=== PATIENT | female | born 1940 | race Caucasian/White ===

== ENCOUNTER 2020-10-03 13:20 | Inpatient (IN) | payer OTHER, BC ==
[~2020-10-03] VITALS: Ht 172.7 cm; Wt 58.5 kg
[2020-10-03 21:55] VITALS: BP 143/66
--- NOTE | 2020-10-04 02:47 | NUR ---
10-03-20 RECEIVED REPORT FROM ELIZABETH LOOMIS FROM ED. PT ARRIVED ON UNIT 2044 AND NOTED PT WAS UNTIDY AND BRIEF HEAVY WITH YELLOW URINE, REDNESS IN PERIAREA AND BUTTOCKS, PT CLEANED WITH SOAP AND WATER AND Z-GUARD APPLIED AND PT PLACED IN BED ON CLEAN CHUX OPEN TO AIR. PT PRESENTS A/OX1, ANXIOUS WITH CONFUSION. PT HAS GREER UE AND LE BRUISING AND MULTI OLD WOUNDS WITH POSSIBLE VASCULAR INSUFFICIENCY IN LE, PT SLIGHT BLEEDING ON LLE, CLEAN WITH WOULD ARTIFICIAL BREEDING TECHNICIAN AND DRESSING APPLIED. OBSERVED SMALL BATTERY PLATE ASSEMBLER B/P 143/66, P 81, R16, T 97.1, O2SAT 96% RA RR EVEN AND NONLABORED ON RA. PT DENIES SI/HI AND PAIN. PT PRESENTS ANXIOUS BUT HAS REMAINED COOPERATIVE. MOUTH MOISTURE PROVIDED, R/T PT LIPS ARE CHAPPED AND PT DRANK 480ML OF WATER. PT HAD NO DIFFICUTLIES TAKING MEDICATION WHOLE WITH WATER. PT HAS A HX HTN, CHF, DM2 WITH NEUROPATHY, GERD, ARTHRITIS, HYPOTHYRODISM, GLAUCOMA, RECURRING UTI (PRESENT UTI). PT ATE 100% OF HS SNACK, AND ANOTHER 240ML OF WATER. ZERO S/S OF ACUTE DISTRESS NOTED, PT WILL CONTINUE TO BE OBSERVED PER [facility] PROTOCOL.
[2020-10-04 06:07] LABS: CHOLESTEROL 206 mg/dL (<200); HDL CHOLESTEROL 31 mg/dL (>40); LDL CHOLESTEROL 145 mg/dL (<100); TC:HDL 6.6 Ratio (Not establshd); TRIGLYCERIDE 154 mg/dL (<150); VLDL 31 mg/dL (<40)
[2020-10-04 06:08] LABS: SERUM ASSESSMENT Clear
[2020-10-04 09:36] LABS: ANION GAP 12 mmol/L (7-16); BUN 15 mg/dL (7-18); CALCIUM 9.1 mg/dL (8.5-10.1); CHLORIDE 106 mmol/L (98-107); CO2 27 mmol/L (21-32); CREATININE 1.3 mg/dL (0.6-1.0); GLUCOSE 90 mg/dL (74-106); POTASSIUM 3.9 mmol/L (3.5-5.1); SODIUM 145 mmol/L (136-145)
[2020-10-04 09:53] LABS: ABSOLUTE NEUTROPHILS 2.9 thou/uL (1.4-8.2); EOSINOPHILS 3.9 % (0.0-3.0); HEMATOCRIT 35.1 % (37.0-47.0); HEMOGLOBIN 11.4 gm/dL (12.0-15.0); LYMPHOCYTES 26.4 % (24.0-44.0); MCH 29.3 pg (26.0-34.0); MCHC 32.5 g/dL (28.0-37.0); PLATELET COUNT 166 thou/uL (150-400); POLYS 58.7 % (36.0-66.0); RDW 15.2 % (10.5-14.5); WBC 4.9 thou/uL (4.0-11.0)
--- NOTE | 2020-10-04 10:02 | NUR ---
RD consulted r/t admission to [facility]. Pt on regular diet with no c/o chewing/swallowing at this time. Pt unable to track conversation during dining room visit this AM. She was eating her bkft; confused with the juice box, stating she would usually have her juice in a cup and stating that there was too much food in front of her. "If I eat all of this, I will be a glutton." Meds reviewed and include diuretics, B12, metformin. Labs: lipids out of range, H/H 11.9/36.7, Cr 1.5. UBW inknown. Low nutrition risk.
[2020-10-04 10:13] VITALS: BP 118/43
--- NOTE | 2020-10-04 10:32 | NUR ---
Sleeping but awakens easily. Alert, orientated to name and place but does not know name of facility. Denies SI/HI. Breath sounds clear. Reg HR auscultated. Color pale pink with brisk capillary refill and palpable peripheral pulses. No edema noted. Brief dry, incontinent per report. Active bowel sounds over soft, rounded abdomen. Buttocks with mild erythema, zguarded. Multiple circular scabbed areas on shins, covered with protective pads. Placed in gerichair by as400 programmer. Took meds whole with liquid with alot of encouragement. Minimal PO intake for breakfast.
[2020-10-04 19:20] VITALS: BP 134/111
[2020-10-04 19:23] LABS: URINE BILIRUBIN NEGATIVE (Negative); URINE BLOOD NEGATIVE (Negative); URINE CLARITY CLEAR; URINE COLOR YELLOW; URINE GLUCOSE-RANDOM* NEGATIVE (Negative); URINE KETONES NEGATIVE (Negative); URINE LEUKOCYTES-REFLEX TRACE (Negative); URINE NITRITE-REFLEX NEGATIVE (Negative); URINE PROTEIN (DIPSTICK) NEGATIVE (Negative); URINE UROBILINOGEN 0.2 E.U./dl (0.2-1.0)
--- NOTE | 2020-10-05 06:45 | NUR ---
ASSUMED CARE OF PT, AWAKE RESTING IN BED, PO MEDICATION WITH LOTS OF ENCOUGEMENT. INCONTINENT OF URINE , Z JHONNY APPLIED. PT RESTED WELL THROUGHOUT ROUNDING SAFETY MEASURES IIN PLACE.
[2020-10-05 10:25] VITALS: BP 124/69
--- NOTE | 2020-10-05 14:14 | NUR ---
HAS BEEN CALLING OUT TO STAFF FOR ASSISTANCE SEVERAL TIMES THIS AM-RESTLESS STATING SHE WANTS TO GO TO ROOM BUT NOT TO BED-STATES DOES NOT WANT TO WATCH TV OR GO TO GROUPS OR LAY DOWN IN BED-IS ORIENTED TO PLACE STATING "I HAVE BEEN COMING TO THIS HOSPITAL FOR A LONG TIME"WHEN ASKED WHY SHE WAS HERE STATES "I FELL-WHEN ASKED HOW STATES "I WASS TANDING AT THE TOP OF THE SKIE LIFT AND I GUESS I FEELL,I COULD SEE THEM DOING JUMPS AROUND ME (THE OTHER SKIERS)ATE ATE WELL DENIES C/O PAIN
[2020-10-05 19:15] VITALS: BP 130/60
[2020-10-05 20:10] VITALS: BP 130/60
[2020-10-05 21:06] LABS: SYPHILIS AB Non Reactive (Non Reactive)
--- NOTE | 2020-10-06 01:34 | NUR ---
PATIENT CARE WAS RESUMED AT 1900 AFTER REPORT. SHE IS ALERT AND ORIENTED.MAX DIABETES NURSE WITH CARE.PT APPEARED SO FIGHTFUL. ABLE TO VERBALIZE NEED. LUNGS ARE CLEARED. SHE TOOK HER MEDS WHOLE WITHOUT ANY ISSUES. SHE DENIES PAINS SI/ VHA/.BS ACTIVE X 4 QUAD.INCONTINET OF BOWEL/BLADDER. .BED IS LOW , LOCKED, ALARM ACTIVATED,YELLOW SOCK AND SHIRT ON. [id number] CHECK ON. CONTINUE CARE AND MONITOR.
[2020-10-06 06:14] LABS: CALCIUM 9.6 mg/dL (8.5-10.1); POTASSIUM 3.9 mmol/L (3.5-5.1)
--- NOTE | 2020-10-06 06:50 | H ---
[facility] [place] [address] HISTORY AND PHYSICAL Name: RED BARNEY Room #: 521B-B ADM IN M.R.#: [id number] Admission: 10/03/20 Attend Phys: Scottie Silva DO Discharge: Date of : 36 Report #: [id number] THIS REPORT FOR: cc: Grupo Nice MD, Ammar MD Kerstein,Scottie Smith DO ~ DOC #: [id number] SCOTTIE Silva DO DATE OF SERVICE: 10/04/2020 INPATIENT PSYCHIATRIC EVALUATION ATTENDING PSYCHIATRIST: Scottie Silva DO MEDICAL CONSULTANTS: Sussy Gaffney and Delmer Adamson MD and his hospitalist team SOURCES OF INFORMATION: Telephone call with the , Ralph, his number is [phone], also interview with the patient, records review from the [facility], and interview with the patient. REASON FOR PRESENTATION: Refusing medications, difficulty with care, concerns for psychosis. CHIEF COMPLAINT: Unspecified. HISTORY OF PRESENT ILLNESS: This is an 79-year-old female. The patient is appearing cognitively impaired. She is oriented to self today and pleasant. She is unable to describe why she was sent out from the long-term care facility. The diagnosis the long-term care facility has is quite numerous and I hesitate to read it as it is appearing that has been anything that was or may have been ever diagnosed with her. Needless to say, the patient does have a history of coronary artery disease, coronary artery stent placement. The patient does not have a history of surgeries according to the . SOCIAL HISTORY: The patient was born in [place], [place], raised in [place]. According to the , she has a college degree. No history of physical, sexual or emotional abuse. No alcohol, tobacco smoking, drug history. MEDICATIONS: In the shelter are acetaminophen 325 mg 2 tabs q. 4 hours p.r.n. for pain, Ativan 0.5 mg oral every 8 hours as needed for anxiety, bisacodyl suppository, bupropion 300 mg once daily, cyanocobalamin 1000 mcg oral daily, Depakote [address] ordered daily, the has requested the patient not be continued on this medication. Lexapro 10 mg oral daily; Estrace cream 0.1 mg per gram inserted vaginally at bedtime every Saturday, Saturday, Saturday; [facility] [address] [place] [address] HISTORY AND PHYSICAL Name: RED BARNEY Room #: 521B-B ADM IN M.R.#: [id number] Admission: 10/03/20 Attend Phys: Scottie Silva, Discharge: Date of : 38 Report #: [id number] famotidine 20 mg oral daily, Floranex that is lactobacillus one tablet daily; furosemide 40 mg oral daily; Keflex 500 mg by mouth one time a day; latanoprost drops each eye daily; levothyroxine 50 mcg oral daily; metformin 500 mg oral b.i.d.; potassium chloride extended release 20 mEq daily; Seroquel, she was getting 50-75 mg at bedtime and it looks like a duplicate order on the Seroquel. In any event, the patient was accompanied with a lot of notes, most of them were none to recent. Apparently on 09/29/2020, the social sciences professor spoke with Ralph about sending her for an inpatient psychiatric stay, as her delusions and paranoia are not getting better. Today, the patient was so upset she could not eat because she felt like she was going to vomit. They will ask Dr. Nice to see what he thought. I let the director digital communications know and also told the director that Ralph want an update on the visit. Ralph then wants to talk on 10/03/2020. Also, looks like a dietitian saw her on 09/29/2020 regarding weight loss. The patient was seen by Dr. Price Robbins on 09/12/2020 and diagnosed her with bipolar 1 disorder. There is a note on the 09/29/2020 that he prescribed 50 mg Seroquel at bedtime for bipolar disorder, unspecified and delusional disorder. Apparently, the , Ralph, was unhappy with Dr. Robbins' consultation and requested a second opinion. ALLERGIES: IODINE AND SHELLFISH. I have a slightly different list of the patient's diagnoses and for completeness, I will just read through them. PAST MEDICAL HISTORY: Acute on chronic combined systolic and diastolic heart failure; type 2 diabetes mellitus; diabetic neuropathy, unspecified; major depressive disorder, single episode, unspecified; muscle weakness; generalized nausea and vomiting, unspecified; unspecified dementia without behavioral disturbance; gastroesophageal reflux disease without esophagitis; polyarthritis; hypothyroidism; disorientation; other specified information about vagina and vulva; bipolar disorder, unspecified; constipation, unspecified; local edema; anxiety disorder, unspecified; delusional disorder; age-related physical debility, unspecified; glaucoma; hallucinations, unspecified. Personal history of COVID-19, personal history of urinary tract infection, myocardial infarction, presence of coronary angioplasty implant and graft, allergic rhinitis. 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 The patient was seen 09/30/[address] Nice, diagnoses were paranoia, chronic diastolic congestive heart failure, bipolar disorder, aortic stenosis, diabetes mellitus and hypertension. It looks like there is a functional assessment that was done on 09/19/2020 and rest of the [facility] [address] [place] [address] HISTORY AND PHYSICAL Name: SAVITARED Room #: 521B-B ADM IN ..#: [id number] Admission: 10/03/20 Attend Phys: Scottie Silva DO Discharge: Date of : 38 Report #: [id number] notes are going back older 09/09/2020 and previously. We will move on to ER information. LABORATORY DATA: Most recent laboratories today, H and H 11.4 and 35.1. White count 4.9, platelet count 166. Chemistries: Sodium 145, potassium 3.9, chloride 106, bicarbonate 27, anion gap 12, BUN 15, creatinine 1.3, estimated GFR 39, calcium 9.1, total bilirubin 0.4, AST 12, ALT 18, alkaline phosphatase 82, total protein 7.2, albumin 3.5. Triglycerides 154, cholesterol 206, LDL 145, HDL 31. Vitamin B12 2411. TSH 2.442. Urinalysis showed trace blood, 1+ leukocyte esterase, urine wbc, urine bacteria. I should add the nurse practitioner in the Emergency Room, Rodolfo Dorantes told me he was giving her I believe it was 3 grams of fosfomycin that is a one-time dose. Any event, the hospitalist started her on cefuroxime 250 mg p.o. b.i.d. already at this point. No neuro imaging was done in the ER. PHYSICAL EXAMINATION: VITAL SIGNS: Temperature 35.1, pulse 59, respirations 16, BP 118/43, O2 sat 100%. MUSCULOSKELETAL: She is nonambulatory in a Giovana chair. She has wraps over bilateral forearms. I think that is from bruising, but nurse did the skin assessment on her, so I refer the reader to her report. MENTAL STATUS EXAMINATION: This is a well-developed, older than age ill-appearing female in no distress. In fact, her mood is good, happy, cheerful, congruent, euthymic, inappropriately elevated. Attention, concentration will be limited. Speech would be increased volume, variable spontaneity, slow rate. She denied suicidal or homicidal ideations. Denied auditory, visual, or tactile hallucinations. Thought content was very much associated on the present. She did show some reactivity to the comments her , Ralph, made about her health. Insight and judgment were impaired. Fund of knowledge well below average. FORMULATION: An 79-year-old female sent out from [facility] under Dr. Nice's care there for as best I can tell failure to thrive, refusing medications. DIAGNOSES AT THE TIME: Unspecified neurocognitive disorder, F03.90, history of bipolar disorder, but not currently meeting criteria. Medical comorbidities are multiple and per our hospitalists include acute on chronic renal failure, creatinine down to 1.3 today, it was 1.5 yesterday; diabetes, holding metformin, hemoglobin A1c pending; urinary tract infection, initiated cefuroxime, was treated with fosfomycin in the ER; hypothyroidism. Also, she has a rash on her perineal area, which may involve the vulva and vagina. I have asked the hospitalist to examine her as I do not do female genitalia exams. [facility] [address] [place] [address] HISTORY AND PHYSICAL Name: RED BARNEY Room #: 521B-B ADM IN M.R.#: [id number] Admission: 10/03/20 Attend Phys: Scottie Silva, DO Discharge: Date of : 38 Report #: [id number] PLAN: Admitted via DPOA. The patient is incapacitated for healthcare general financial decisions. Evaluate, stabilize, obtain collateral. CURRENT MEDICATIONS IN THE HOSPITAL: Cefuroxime 250 mg p.o. b.i.d. for suspected UTI, insulin sliding scale, potassium citrate 20 mEq p.o. daily, lactobacillus daily, Lasix 40 mg oral daily, cyanocobalamin 1000 mcg oral daily, Wellbutrin decreased to 150 mg p.o. daily, metformin 500 mg oral twice a day, pantoprazole 40 mg p.o. daily, levothyroxine 50 mcg oral daily, latanoprost drops 2 mL each eye nightly. Depakote discontinue per 's request. I would like to see how she does overnight with treatment of UTI an extra day in the hospital. I am going to hold off on initiating an antipsychotic until I get a fresh look at her tomorrow. We will keep her as a full code. Time spent on this case is at least 60 minutes, greater than 50% time reviewing records and coordination of care. STRENGTHS: She is insured, supportive family, has a surrogate decision maker. WEAKNESSES: Likely neurodegenerative disorder, multiple morbidities. We will request neuro imaging from [facility]. I will go ahead and order B12, folate, syphilis antibody and vitamin D to complete dementia workup. Estimated length of stay 10-14 days. SCOTTIE Silva DO AHK/NEE/TAJ <ELECTRONICALLY SIGNED> By: Scottie Silva DO 10/06/20 0650 [id number] [id number] Scottie Silva DO /nt
[2020-10-06 09:34] VITALS: BP 127/47
--- NOTE | 2020-10-06 14:43 | NUR ---
Assumed pt care at 0700. pt was in the room socializing. ALERT AND ORIENTED TO PERSON AND PLACE. aSSESSMENTS COMPLETED, VSS. DENIES SI/HI, DENIES PAIN AT THIS TIME. CALM AND COOPERATIVE WITH CARE. TOOK MEDS WHOLE, NO DIFFICULTY NOTED. Ambulates WITH A W/C. No sign of acute distress noted upon assessments. pt have been incontinent x2 this shift. At this time pt is in the day room. will continue to monitor pt.
[2020-10-06 19:05] VITALS: BP 128/60
[2020-10-06 20:45] VITALS: BP 128/60
--- NOTE | 2020-10-07 05:25 | NUR ---
CORRY CARE WAS RESUMED AT 1900 AND SHE IS ALERT AND ORIENTED. SHE WAS IN BED IN HER ROOM. SHE TOOK HER MEDS WHOLE, LUNGS ARE CLEAR, BS ACTIVE X4 QUADS. SHE IS A MAX ASSIST WITH CARE. SHE IS CALM DENIES PAINS, SI/AVH/HI. BED IS LOW, LOCKED, ALARM. SHE IS INCONTINENT AND ABLE TO VERBALISE HIS NEEDS. YELLOW SOCK AND SHIRT ON. [id number] CHEAKS IN PLCAE . CONTINUE TO MONITOR.
[2020-10-07 09:28] VITALS: BP 145/64
--- NOTE | 2020-10-07 10:30 | NUR ---
COOPERATIVE WITH REQUESTS FROM STAFF THIS AM-DID REQUIRE SOME ASSIST IN FEEDING SELF BREAKFAST UNABLE TO MANIPULATE SPOON AND FORK. COMPLIENT WITH TAKING AM MEDICATIONS WHOLE IN APPLESAUCE. DENIES PAIN. DENIES SI/SH/HI. TRANSFERS WITH ASSIST OF 1-2 STAFF-INCONTIINENT OF URINE X2 SO FAR THIS AM-COOPERATIVE WITH INCONTINENT CARE
[2020-10-07 20:11] VITALS: BP 130/64
[2020-10-07 21:30] VITALS: BP 130/64
[2020-10-08 01:55] VITALS: BP 130/64
--- NOTE | 2020-10-08 03:46 | NUR ---
JOSE ROBERTOBRANDEN CARE WAS RESUMED AT 1900. SHE IS ALERT AND CONFUSED. MAX ASSIST WITH CARE. SHE IS CALM AND SLEEPING IN BED AT THIS TIME. LUNGS ARE CLEAR, BS ACTIVE X4 QUADS. BED IS LOW , ALARMED, LOCKED. SHE DENIES PAINS,SI/ AVH/ HI. ABLE TO MAKE SOME NEED KNOWN. SHE SWALLOWED HER MEDS WHOLE. CONTINUE CARE.
[2020-10-08 09:08] VITALS: BP 134/54
--- NOTE | 2020-10-08 12:06 | NUR ---
REQUIRES MAX ASSIST X 2 TO TRANSFER TO/FROM CHAIR TO BED OR COMMODE-HAS BEEN TOILETED Q 2-3 HRS TODAY AND SO FAR NO EPISODES OF INCONTINENCE. DENIES SI/SH/HI. DENIES CO PAIN-DISCOMFORT. APPETITE REMAINS POOR DESPITE STAFF ASSISTING TO FEED AT MEALTIMES. APPROX 25 PERCENT OF BREAKFAST AND LUNCH CONSUMED. BS ACTIVE X4 AND SMALL BM THIS AM PER COMMODE. AT TIMES CO NVERSATION IS RAMBLING/DISORGANIZED AND NOT R/T TO TOPIC. ANXIOUS DISTRAUGHT FACIAL EXPRESSION BUT WHEN ASKED DENIES FEELING ACUTLY ANXIOUS.
[2020-10-08 19:38] VITALS: BP 133/65
--- NOTE | 2020-10-08 23:47 | NUR ---
ASSUMED PATIENT CARE AT 1900. PATIENT SITTING IN GERICHAIR WATCHING TV AMONG PEERS AT THAT TIME. PATIENT TOOK MEDS WHOLE WITHOUT DIFFICULTY. A&OX2. APOLOGIZES WHILE THIS PRIVACY ANALYST AND DELIVERY SALES WORKER ARE HELPING HER TO BED AND TO THE TOILET, REASSURED NO APOLOGIES ARE NEEDED AND WE ARE HERE TO HELP WITH ALL HER NEEDS. PATIENT REQUIRED 2 X ASSIST TO BED AND TOILET. DENIES ANY PAIN, SI, HI, DEPRESSION, AVH. NO DELUSIONS OBSERVED. WILL CONTINUE TO MONITOR.
[2020-10-09 09:33] VITALS: BP 128/55
--- NOTE | 2020-10-09 13:37 | NUR ---
Assumed pt care at 0700. pt was in the day room resting. Assessments completed, vss. ALERT And oriented to person. denies si/hi. No c/o pain at this time. took meds whole no dificulty noted. AMbulates with Giovana chair. incontinent 2x this shift. No sign of acute noted upon assessments. meds administered as ordered. 3 unit of insulin administered at noon for blood sugar of 160. calm And cooperative with care and assessments.MAKES NEED KNOWN TO STAFF. At this time pt is in her room napping. WILL CONTINUE TO MONITOR.
[2020-10-09 19:18] VITALS: BP 115/60
[2020-10-09 20:20] VITALS: BP 115/60
--- NOTE | 2020-10-10 01:35 | NUR ---
PATIENT CARE WAS RESUMED AT 1900. SHE WAS IN BED ALERT AND ORINETED WITH SOME CONFUSSION. LUNGS ARE CLEAR, BS ACTIVE X 4 QUAD. SHE DENIES PAINS/SI/ AVH/HI . SHE IS ABLE TO VERBALISE SOME NEEDS. SHE IS CALM, AND CO-OPERATIVE WITH CARE. SHE TOOK HER MEDS WHOLE WITH WATER. ON FALL PRECAUTION.BED IS LOW,LOCKED,ALARM ACTIVE, SHE HAS A NONE SKID SOCK ON. Q 12MINUTES CHECK IS ONGOING.
[2020-10-10 10:08] VITALS: BP 135/53
--- NOTE | 2020-10-10 11:08 | NUR ---
SANTI spoke with BJ Sanchez at [facility] [phone]. Adrianna reported that the Pt does see the psychiatrist that rounds at [facility]. Also the psychiatrist was in the process of taking Pt off of depakote, however Pt became delusional and VH. SANTI informed that Pt is doing well and that depakote has been discontinued. SANTI informed Pt may be ready for discharge 10/13/2020. SANTI will keep the facility updated on dicharge. SANTI did fax weekend updates to the facility.
--- NOTE | 2020-10-10 12:18 | NUR ---
Followup: remains on SBH. Intake is 50-80% of meals. No new wt since 10/03. Has hx of DM and on ss insulin and metformin, so will add carb control. A1C 6%. Receives B12 and vitamin D supplementation. Will add glucerna shake 1 day until intake consistently >75%, otherwise remains low nutrition risk
--- NOTE | 2020-10-10 12:39 | NUR ---
RT PROGRESS NOTE- Jaja has been present in both the milieu and recreation therapy groups throughout each day since she has admitted to the unit. She continues to appear anxious via facial expression, but when asked how she is, she endorses "feeling better" consitently. During her first few days of admission, Jaja would become extremely anxious, interrupting discussions with statements of hopelessness; "I'm never going to get to go home" or "my won't come when it's time to be picked up." This has improved throughout this review period, and has not occured as often. CRM DEVELOPER will continue to encourage group participation and improved coping skills.
--- NOTE | 2020-10-10 12:43 | NUR ---
HAS BEEN VISIBLE IN DAYROOM SITTING WITH PEERS DURING MEALS AND SCHEDULED ACTIVITIES. TRANSITIONED FROM TO [facility] MIDWAY THROUGH AM TO ALLOW POSITION CHANGE PT STATES DOES NOT WANT TO LAY DOWN AND IS UNABLE TO STAND OR AMBULATE WITHOUT MAX ASSIST. HAS REMAINED CONTINENT OF BOWEL AND BLADDER AND IS ABLE TO ALERT STAFF WHEN NEEDING TO USE BATHROOM-DOES REQUIRES MAX ASSIST OF 2 STAFF TO TRANSFEWR FROM TO COMMODE OR BED. DID STAND BRIEFLY WITH ASSIST OF WALKER/GAIT BELT AND NURSE BRIEFLY THIS AM PER HER REQUEST BUT HAS A TENDENCY TO LEAN BACK AND NOTED DIFFICULTY STANDING UPRIGHT,UNBENDING KNEES INITIALLY- DID DO BETTER ON 2ND/3RD ATTEMPT. ORIENTED TO NAME AND IS AWARE AT THE HOSPITAL-CONVERSATION AT TIMES RAMBLING AND NON-GOAL DIRECTED BUT NO OVERT PSYCHOSIS NOTED OR REPORT SO FAR THIS SHIFT. CONTINUES HIGH FALLS RISK
[2020-10-10 19:15] VITALS: BP 130/57
--- NOTE | 2020-10-11 01:04 | NUR ---
PATIENT CARE ASSUMED AT 1900. PATIENT IN YAMILEX CHAIR AT THAT TIME. PATIENT RECOGNIZED THIS RN AND EXPRESSED "I'M HAPPY TO SEE YOU". PATIENT DENIES SI/HI/AVH. HAS BRUISING ON UPPER AND LOWER EXTREMITIES. SMALL SKIN TEAR TO 3RD FINGER ON LEFT HAND, CLEANED WITH STERIL SALINE AND COVERED WITH BANDAID. OFTEN SAYS "I'M SORRY" WHEN BEING ASSISTED WITH TOILETING AND TRANSFERRING. REASSURED PATIENT THERE IS NOTHING TO BE SORRY ABOUT AND WE ARE HAPPY TO BE ABLE TO HELP HER. PATIENT TOOK HS MEDS WITHOUT DIFFICULTY. DENIES PAIN. WILL CONTINUE TO MONITOR.
[2020-10-11 10:20] VITALS: BP 130/57
--- NOTE | 2020-10-11 13:56 | NUR ---
Assumed pt care at 0700. pt was alert and oriented to self. Assessments completed, vss. Took meds whole difficulty noted. Denies si/hi. denies pain. ambulates with a Giovana chair. NO SIGN OF ACUTE DISTRESS NOTED UPON ASSESSMENTS. calm and cooperative with care. No insulin administered to pt at this time. Pt is currently sleeping in her room. will continue to monitor.
[2020-10-11 20:00] VITALS: BP 124/59
[2020-10-12 09:33] VITALS: BP 103/57
[2020-10-12 19:48] VITALS: BP 128/62
--- NOTE | 2020-10-12 23:31 | NUR ---
10-12-20 CARE TRANSFERRED 1899. LATER PT AAOX1, VSS, RR EVEN AND NONLABORED ON RA. PT DENIES PAIN SI/HI. PT HAS BEEN CALM AND COOPERATIVE. ZERO S/S OF SHA INMAN SNOTED, PT WILL CONTINUE TO BE MONITOR PER [facility] PROTOCOL.
[2020-10-13] MEDS ORDERED: RISPERDAL0.5 MG PO (10:41)
[2020-10-13] MEDS ORDERED: ACIDOPHILUS1 EAC4 PO (10:42)
[2020-10-13] MEDS ORDERED: CALTRATE-600 W1 EACH PO (10:42)
[2020-10-13] MEDS ORDERED: PROTONIX40 M4 PO (10:43)
[2020-10-13] MEDS ORDERED: GLUCOPHAGE500 MG PO (10:44)
[2020-10-13] MEDS ORDERED: SYNTHROID50 MCG PO (10:45)
[2020-10-13] MEDS ORDERED: VITAMIN B-12500 MCG PO (10:45)
[2020-10-13] MEDS ORDERED: VITAMIN D3125 MC1 PO (10:46)
--- NOTE | 2020-10-13 10:52 | NUR ---
Alert and orientated name only. Needs assistance with standing. No response to SI/HI questions. Breath sounds clear. Reg HR auscultated. Color pink with brisk capillary refill and palpable peripheral pulses. Yellow urine per report. Large soft, brown stool per brief. Active bowel sounds over soft, rounded abdomen. Reddened area on buttocks and periarea, applying zpaste. Circular waxy white plaques over lower legs, pads in place. Plan on discharge this am. Called [facility], and DPOA, consents to transfer. Called report to Trinidad Crews at [facility], no questions at this time. Plan on discharge at 1100.
[2020-10-13 11:35] VITALS: BP 122/54
--- NOTE | 2020-10-15 16:18 | D ---
[facility] [place] [address] DISCHARGE SUMMARY Name: RED BARNEY Room #: 521B-B DIS IN M.R.#: [id number] Admission: 10/03/20 Attend Phys: Scottie Silva DO Discharge: 10/13/20 Date of : 36 Report #: [id number] THIS REPORT FOR: cc: Grupo Nice MD, Ammar MD Kerstein,Scottie Smith DO ~ DOC #: [id number] SCOTTIE Silva DO DATE OF SERVICE: 10/13/2020 INPATIENT PSYCHIATRIC DISCHARGE SUMMARY ATTENDING PSYCHIATRIST: Scottie Silva DO INDUSTRIAL ENGINEER: At time of discharge, Kulwant Jordan MD DISCHARGE DIAGNOSES: Major neurocognitive disorder, unspecified with behavioral disturbance, improved. Urinary tract infection, not fully treated. MEDICAL COMORBIDITIES: For this patient are chronic renal failure, creatinine 1.3. Diabetes, on metformin. Accu-Cheks, A1c 6.0. Hypothyroidism. The patient was a full code this admission. The patient is being discharged to [facility] psychiatric unit. Medical care to be by the receiving facility. She can ambulate short distances with assistance. Diet is mechanical, altered, chopped. DISCHARGE MEDICATIONS: Risperidone 0.5 mg oral twice daily for psychosis, that can be discontinued 10 to 14 days if she transitions back to fpc okay. Calcium carbonate with vitamin D3 500 mg oral 3 times a day. Lactobacillus acidophilus probiotic 1 capsule oral daily for bowel health, pantoprazole 40 mg oral daily for GERD, metformin 500 mg oral twice daily for diabetes mellitus, levothyroxine 50 mcg oral daily for hypothyroidism, cyanocobalamin 1000 mcg oral daily for B12 supplementation, vitamin D3 5000 International Units oral daily for supplementation. LABORATORY DATA: Significant laboratories this admission are as follows: Hematology: H and H 11.3 and 35.1. White count 4.9, platelet count 166. Sodium 144, potassium 3.9, chloride 105, bicarbonate 27, anion gap 12. BUN 14, creatinine 1.0, estimated GFR 53. Estimated average glucose 126. Hemoglobin A1c 6.0. Calcium 9.6. Total bilirubin 0.4, AST 12, ALT 18, alkaline phosphatase 82. Total protein 7.2, albumin 3.5. Triglycerides 154, cholesterol 206, LDL 145, HDL 31. B12 of 2411. Vitamin D 22.8, slightly low. Folate 17.8. TSH 2.442. Urinalysis is negative grossly. Microbiology shows no growth. COVID-19 serology is nonreactive on 10/04. REASON FOR ADMISSION: Back on 10/03 is as follows: An 79-year-old [address] [address] DISCHARGE SUMMARY Name: S[facility]ITARED [facility]ASH Room #: 521B-B [facility] IN M.R.#: [id number] Admission: 10/03/20 Attend Phys: Scottie Silva DO Discharge: 10/13/20 Date of : 36 Report #: [id number] female, sent out from [address], refusing medications, difficulty with care, concerns for psychosis. HOSPITAL COURSE: The patient was admitted to Geriatric Psychiatry Unit. The patient's bupropion was discontinued. She was initially started on Depakote and then that was discontinued at her 's request. I went ahead and started on risperidone regimen 0.5 mg twice per day. The patient behaved well with this regimen, did have a bit of sedation towards the end of stay, however, that was judged to be multifactorial. The patient has advanced dementia with unfortunately limited life expectancy. CONDITION AT DISCHARGE: Stable. PHYSICAL EXAMINATION: VITAL SIGNS: Temperature 36.2, pulse 86, respirations 16, BP 122/54, O2 sat 95%. MUSCULOSKELETAL: Gait not tested, in Giovana chair. MENTAL STATUS EXAMINATION: This is a well-developed, well-appearing female, appearing older than stated age. Attention limited. Concentration limited. Speech slow, nonspontaneous at times. Mood and affect congruent, constricted. Did not display suicidal or homicidal behavior, but unable to assess well for auditory, visual, tactile hallucinations or suicidality or homicidality. Memory known to be impaired. Insight impaired, judgment impaired. Fund of knowledge well below average. Prognosis for this patient is quite guarded given the advanced degree of dementia, age and comorbidities. DO ANALI Cannon/ISABELLE/MANEI <ELECTRONICALLY SIGNED> By: Scottie Silva DO 10/15/20 1618 [id number] Scottie Silva DO /nt
== END 2020-10-13 11:25 | DRG 884 ==
LOC: SBH
PROVIDERS: Hospitalist; Nurse Practitioner; ADMIT Psychiatry & Neurology Psychiatry; ATTEND Psychiatry & Neurology Psychiatry
DX: F01.51 Vascular dementia, unspecified severity, with behavioral disturbance (principal); N17.9 Acute kidney failure, unspecified; N18.9 Chronic kidney disease, unspecified; N39.0 Urinary tract infection, site not specified; I13.0 Hypertensive heart and chronic kidney disease with heart failure and stage 1 through stage 4 chronic kidney disease, or unspecified chronic kidney disease; I50.42 Chronic combined systolic (congestive) and diastolic (congestive) heart failure; F29 Unspecified psychosis not due to a substance or known physiological condition; E03.9 Hypothyroidism, unspecified; E11.22 Type 2 diabetes mellitus with diabetic chronic kidney disease; I25.10 Atherosclerotic heart disease of native coronary artery without angina pectoris; E11.40 Type 2 diabetes mellitus with diabetic neuropathy, unspecified; K21.9 Gastro-esophageal reflux disease without esophagitis; F41.1 Generalized anxiety disorder; F32.9 Major depressive disorder, single episode, unspecified; Z95.5 Presence of coronary angioplasty implant and graft; Z86.16 Personal history of COVID-19; Z86.73 Personal history of transient ischemic attack (TIA), and cerebral infarction without residual deficits
CPT/HCPCS: 10880